=== PATIENT | female | born 1970 ===

== ENCOUNTER 2017-08-05 09:33 | Day surgery (SDC) | payer OTHER ==
[2017-08-01 09:57] VITALS: RESP 18
[2017-08-01 09:58] VITALS: BMI 20.2
[2017-08-05] MEDS ORDERED: Strong Iodine Topical Sol. 5%-10% ONE (12:52)
[2017-08-05] MEDS ORDERED: Ferric Subsulfate Sol(60 mL) ONE (12:52)
[2017-08-05] MEDS ORDERED: Propofol 10 mg/ml Inj (20 ML) ONE ×2 (13:10→14:13)
[2017-08-05] MEDS ORDERED: Lidocaine 4% (Laryng-O-Jet) Kit MM ONE (13:11)
[2017-08-05] MEDS ORDERED: Midazolam 2 MG/2 ML VIAL ONE (13:11)
[2017-08-05] MEDS ORDERED: Succinylcholine 200 mg/10 ml Inj IV ONE (13:12)
[2017-08-05] MEDS ORDERED: ePHEDrine 50 mg/ml Inj ONE (13:12)
[2017-08-05] MEDS ORDERED: Silver Nitrate Topical - Stick ONE (13:15)
[2017-08-05] MEDS ORDERED: cefOXitin IV 1 gm in Dextrose 1 GM/50 ML BAG IVPB ONE (13:16)
[2017-08-05] MEDS ORDERED: Lactated Ringer's 1,000 ML IV ONE (13:44)
[2017-08-05] MEDS ORDERED: Dexamethasone 4 mg/1 ml ONE (14:13)
[2017-08-05] MEDS ORDERED: HYDROmorphone 0.5 mg/0.5 ml ISec IVP PRN (14:47)
[2017-08-05] MEDS ORDERED: Lactated Ringer's 1,000 ML IV SCH (15:00)
[2017-08-05 17:06] VITALS: BP 116/78; PULSE 62; TEMP 97.8; O2SAT 99
--- NOTE | 2017-08-10 16:24 | OP ---
PROCEDURE DATE: 08/05/2017 PREOPERATIVE DIAGNOSIS: Abnormal menstrual bleeding. POSTOPERATIVE DIAGNOSIS: Abnormal menstrual bleeding, pending pathology. PROCEDURE: . SURGEON: Adrien Barnes MD TYPE OF ANESTHESIA: General. ANESTHESIA ADMINISTERED BY: Ирина Perrin MD DESCRIPTION OF PROCEDURE: With the patient in the dorsal lithotomy position, the patient was prepped and draped in usual sterile manner. Straight catheter was used to empty the bladder, after which the uterus was dilated. Hysteroscope was then placed. At this time, it appeared that the patient was having some menstruation and there was no bleeding. After this was , dilatation and curettage was done obtaining small amount of tissue, which was sent to pathology. The patient tolerated the procedure very well, was in satisfactory condition on the way to recovery room. Adrien Barnes MD
== END 2017-08-05 17:30 | disposition home or self-care (01) ==
LOC: H.OPSURG 09:33
PROVIDERS: ATTEND Specialist
DX: N84.0 Polyp of corpus uteri (principal); N92.0 Excessive and frequent menstruation with regular cycle; N92.6 Irregular menstruation, unspecified; Z01.818 Encounter for other preprocedural examination
CPT/HCPCS: 58555; 88305; J0330; J0694; J1100; J2001; J2250; J2704; J3010; J7120